=== PATIENT | female | born 2005 | race Caucasian/White ===

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

== ENCOUNTER 2024-12-05 13:26 | Emergency (ER) | payer BC, SELFPAY ==
[2024-12-05 13:30] VITALS: BP 126/89
[2024-12-05 14:00] LABS: Hematocrit 40.4 % (37.0-47.0); Hemoglobin 14.0 g/dL (12.0-16.0); Mean Corp Hgb Conc. 34.7 g/dL (33.0-37.0); Mean Corpuscular Volume 95.3 fL (81.0-99.0); Nucleated Red Blood Cells % 0 %; Platelet Count 237 10^3/uL (130-400); Red Cell Dist. Width 12.0 % (11.5-14.5)
[2024-12-05 14:06] LABS: Urine Character Clear (Clear)
[2024-12-05 14:14] LABS: Urine Red Blood Cell 0-2 /HPF (0-2); Urine Squamous Cell 26-30 /LPF (Few)
[2024-12-05 14:15] LABS: HCG, Serum Qualitative Screen Negative
[2024-12-05 14:22] LABS: ALT (SGPT) 21 U/L (0-35); AST (SGOT) 28 U/L (14-36); Albumin 5.3 g/dl (3.5-5.0); Alkaline Phosphatase 43 U/L (38-126); Blood Urea Nitrogen 16 mg/dl (7-17); Calcium 9.9 mg/dl (8.4-10.2); Carbon Dioxide 28 mmol/L (22-30); Chloride 104 mmol/L (98-107); Glucose 89 mg/dl (70-99); Lipase 105 U/L (23-300); Potassium 4.8 mmol/L (3.5-5.1); Sodium 138 mmol/L (135-145); Total Protein 8.2 g/dl (6.3-8.2); eGFR > 60.00
--- NOTE | 2024-12-05 16:32 | ED.GENMED ---
History of Present Illness
General
Chief Complaint: Abdominal Pain
Source: patient
Exam Limitations: none
Time Seen by Provider: 12/05/24 16:18
History of Present Illness
History of Present Illness:
19yoF with no significant past medical history presenting with her mother for evaluation of abdominal pain. Patient has been having left lower abdominal cramping for the past 2 weeks or so. She is also having some burning in her abdomen. Bowel
movements are alternating between diarrhea and constipation. She was seen by her PCP for her symptoms and was started on Pepcid without any relief. She had a urine test while at her PCP appt thinking she may have a UTI but was told her urinalysis
was normal. She denies any vomiting or fevers. She is about 5 days late for her menstrual period. No previous abdominal surgeries.
Phy Exam
General Physical Exam
General Presentation: well appearing and no apparent distress
General Skin: warm and dry
General Habitus: normal
General Mental: alert
ENT Exam
ENT Exam: normocephalic
Pulmonary Exam
Pulmonary Exam: no respiratory distress
Gastrointestinal Exam
Gastrointestinal Exam: soft, non distended and other (Mild tenderness in LLQ. Abdomen soft, non-distended. No rebound or guarding.)
Neurological Exam
Neurological Exam: alert
[place] Coma Scale
Eye Opening: Spontaneous
Verbal Response: Oriented
Motor Response: Obeys Commands
GCS Total Score: 15
Skin Exam
Skin Exam: normal color and warm/dry
Psychiatric Exam
Psychiatric Exam: normal mood/affect
Course
Orders/Labs/Results
Orders:
Orders
12/05/24 13:36
Test Result ONCE
12/05/24 13:52
Complete Blood Count/With Diff Urgent
Comprehensive Metabolic Panel Urgent
HCG, Serum Qualitative Screen Urgent
Comment: Notify provider if positive test present
Lipase Urgent
Urinalysis Reflex To Culture Urgent
Date Specimen was Collected: 12/05/24
Time Specimen was Collected: 13:35
Urine Microscopic Reflex Cult Urgent
Urine Culture Urgent
HAWA Source: U
Specimen Description:
Date Specimen was Collected: 12/05/24
Time Specimen was Collected: 13:35
12/05/24 16:31
Pelvis & Transvaginal US [US Pelvis W Transvag Combined] Urgent
Comment:
Reason For Exam: LLQ pain
12/05/24 19:25
CT Abd/pel W Iv And Oral Contr Urgent
Comment:
Reason For Exam: L sided abd pain
Iohexol [Omnipaque] See Protocol PO NOW STA
Abnormal Lab Results
12/05/24
13:52
MCH 33.0 H pg
(27.0-31.0)
Albumin 5.3 H g/dl
(3.5-5.0)
Leukocyte Esterase Rfl 1+ A
(Negative)
Urine Bacteria (Reflex) Moderate A
(Negative)
12/05/24 13:52
12/05/24 13:52
Vital Signs
Initial and Last Documented VS:
Initial Vital Signs
Temp Pulse Resp BP Pulse Ox
98.4 F 94 16 126/89 98
12/05/24 13:30 12/05/24 13:30 12/05/24 13:30 12/05/24 13:30 12/05/24 13:30
Last Documented Vital Signs
Temp Pulse Resp BP Pulse Ox
98.6 F 61 20 85/67 100
12/05/24 16:38 12/05/24 16:38 12/05/24 16:38 12/05/24 16:38 12/05/24 16:38
MDM/Problems Addressed
Differential Diagnosis Includes:
19yoF here with LLQ pain x 2 weeks. Alternating between constipation and diarrhea. VSS. She is well appearing in no distress. Mild LLQ tenderness on abdominal exam without signs of peritonitis. Differential diagnosis includes but is not limited to:
Ovarian cyst, constipation, colitis, IBS, less likely diverticulitis given age
Initial ED plan: Workup initiated in triage. Labs unremarkable including normal white count, renal function, LFTs. UA with moderate bacteria although 26-30/LPF squamous epithelial cells present suggesting contaminated sample. Will order pelvic
ultrasound.
Final assessment: Pelvic ultrasound negative for acute findings. Discussed risks vs benefits of CT scan and overall very low clinical suspicion for acute surgical process. Patient requesting CT which was ordered. Case signed out to Breana
RALPH Connell pending CT results. Will plan on outpatient GI f/u if this is negative.
*Pulse Oximetry
SaO2: 98
Oxygen Mode of Delivery: Room air
Patient hypoxic: no (98%)
*Critical Care Note
Total Time (30-74mins, 75-104mins- exclusive of procedures): Not Applicable
ED Attending Note
-
Portions of this chart may have been created with voice recognition software.� Occasional wrong word or��sound alike� substitutions may have occurred due to the inherent limitations of voice recognition software.
Discharge Plan
Departure
Patient Disposition: Home (Routine Discharge)
Date of Disposition: 12/05/24
Time of Disposition: 22:38
Patient with high blood pressure during this ER visit?: No
Condition: Good
Covid-19: Not Applicable
Discharge Problem:
Abdominal pain
Instructions: Abdominal Pain
Prescriptions:
No Action
No Current Medications
0
Referrals:
CARLOS VILLANUEVA DO [Family Provider, Pediatrics] - Follow up in 2-3 days
Activity Restrictions/Additional Instructions:
Return to the emergency department immediately for any changes in/worsening of your symptoms.
Interventions
Interventions:
*Risk Screen - Suicide Last Done: 12/05/24 13:30
*General Assessment Last Done: 12/05/24 16:38
*Neglect/Abuse Screening Last Done: 12/05/24 13:30
*ED- Fall Risk Assessment Last Done: 12/05/24 16:38
*ED COVID-19 Vaccine History Last Done: 12/05/24 16:38
[facility]-Vfucggve[facility] Assessment Last Done: 12/05/24 16:38
Discharge Date and Time
Print Language: NORWEGIAN
[2024-12-05 16:36] VITALS: BP 85/67
[2024-12-05 16:38] VITALS: BP 85/67; BMI 16.8
[2024-12-05] MEDS: OMNIPAQUE 50 ML PO (19:41)
[2024-12-05 21:30] VITALS: BP 91/57
== END 2024-12-05 22:55 | disposition home or self-care (01) ==
LOC: EMR 13:26
PROVIDERS: Emergency Medicine; EMERGENCY PHYSICIAN Emergency Medicine; FAMILY PHYSICIAN Student in an Organized Health Care Education/Training Program
DX: R10.32 Left lower quadrant pain (principal)
CPT/HCPCS: 99284; 74177; 76830; 76856; 80053; 81003; 81015; 83690; 84703; 85025; 87086; Q9967

== ENCOUNTER 2025-01-04 11:36 | Emergency (ER) | payer BC, SELFPAY ==
[2025-01-04 11:59] VITALS: BP 92/64
[2025-01-04 12:23] LABS: Hematocrit 41.1 % (37.0-47.0); Hemoglobin 14.3 g/dL (12.0-16.0); Mean Corp Hgb Conc. 34.8 g/dL (33.0-37.0); Mean Corpuscular Volume 93.6 fL (81.0-99.0); Nucleated Red Blood Cells % 0 %; Platelet Count 232 10^3/uL (130-400); Red Cell Dist. Width 12.0 % (11.5-14.5)
[2025-01-04 12:33] LABS: HCG, Serum Qualitative Screen Negative
[2025-01-04 12:43] LABS: ALT (SGPT) 29 U/L (0-35); AST (SGOT) 25 U/L (14-36); Albumin 4.8 g/dl (3.5-5.0); Alkaline Phosphatase 46 U/L (38-126); Blood Urea Nitrogen 8 mg/dl (7-17); Calcium 9.5 mg/dl (8.4-10.2); Carbon Dioxide 26 mmol/L (22-30); Chloride 107 mmol/L (98-107); Glucose 80 mg/dl (70-99); Lipase 116 U/L (23-300); Potassium 4.0 mmol/L (3.5-5.1); Sodium 141 mmol/L (135-145); Total Protein 7.2 g/dl (6.3-8.2); eGFR > 60.00
[2025-01-04 14:39] VITALS: BMI 16.7
--- NOTE | 2025-01-04 15:47 | ED.GENMED ---
History of Present Illness
General
Chief Complaint: Abdominal Pain
Source: patient and family
Exam Limitations: none
Time Seen by Provider: 01/04/25 15:00
Nursing documentation reviewed up to this point in time: agreed with
History of Present Illness
History of Present Illness:
Note:
CHIEF COMPLAINT(S)
Abdominal pain and constipation.
HISTORY OF PRESENT ILLNESS
The patient is a 19-year-old female presenting with abdominal pain described as a cramping and burning sensation that began approximately three weeks ago. The pain worsens when consuming certain foods, such as honeydew. It is severe enough to cause
significant discomfort, impacting her ability to perform daily activities, such as driving, and resulting in her doubling over in pain. Approximately three weeks ago, the patient visited the emergency department where a CT scan was performed,
revealing constipation.
The patient reports persistent constipation despite at-home management with Miralax, which she took as recommended, although it did not effectively relieve her symptoms. She has been consuming primarily rice due to her inability to eat a varied
diet. The patient underwent further lab evaluations for urinary frequency, which have returned normal results. Additionally, she has a lingering concern about an enlarged lymph node in her left leg, which was previously evaluated as benign.
The patient also experiences unexplained frequent urination but has tested negative for urinary infections multiple times. She describes a burning sensation originating in her abdominal region that extends upwards. She is scheduled to see a
gastrointestinal specialist but cannot obtain a colonoscopy for another 15 days. She has been instructed to avoid medications that may affect test results, such as antacids.
PAST MEDICAL AND SURGICAL HISTORY
Regular consultations with a hemmer automatic for non-fungal nail abnormalities since age 7.
EXTERNAL RECORDS REVIEWED
The previous CT scan and ultrasound confirmed benign lymphadenopathy in the left leg. Urgent care records show multiple negative results for urinary tract infections.
CHRONIC MEDICAL CONDITIONS SIGNIFICANTLY AFFECTING CARE
Candidate for gastrointestinal evaluation and potential colonoscopy due to ongoing abdominal symptoms.
MEDICATIONS
Current medications include Miralax as recommended for constipation management. Previously given a Medrol Dose Pack which improved symptoms but is contraindicated with upcoming tests.
REVIEW OF SYSTEMS
- Gastrointestinal: Abdominal pain, constipation, inability to eat certain foods without discomfort
- Genitourinary: Frequent urination, no dysuria
- Musculoskeletal: Mention of benign lymphadenopathy in leg and chronic non-fungal nail abnormalities.
PHYSICAL EXAM
General: Alert, no acute distress.
Skin: Warm, dry.
Head: Normocephalic, atraumatic.
Neck: Supple, trachea midline.
Eye Ears, nose, mouth and throat: Oral mucosa moist.
Cardiovascular: Normal peripheral perfusion, No edema.
Respiratory: Respirations are non-labored.
Gastrointestinal: Abdomen nondistended. soft, nontender, no rebound or guardin
Back: Normal range of motion, Normal alignment.
Musculoskeletal: Normal ROM, normal strength.
Neurological: Alert and oriented to person, place, time, and situation, No focal neurological deficit observed.
Psychiatric: Cooperative, appropriate mood & affect.
PROBLEM LIST
Acute problems: Abdominal pain, constipation, frequent urination.
Chronic problems: Enlarged benign lymph node, nail abnormalities.
PLAN
1. Prescribe Bentyl (dicyclomine) for abdominal spasms without affecting upcoming tests.
2. Diet Clerk patient to continue with the planned gastrointestinal evaluation and colonoscopy scheduled in 15 days.
3. Ensure accurate follow-up with a hemmer automatic for nail and lymph node concerns.
DIFFERENTIAL DIAGNOSIS
The Differential Diagnosis includes, in no particular order and is not limited to:
1. Irritable bowel syndrome
2. Functional constipation
3. Gastroesophageal reflux disease
4. Gastroenteritis
5. Urinary tract infection
6. Peptic ulcer disease
7. Cholecystitis
8. Inflammatory bowel disease
9. Gastrointestinal obstruction
10. Anxiety-related gastrointestinal symptoms
CARE-UPDATE
01/04/25 - 16:03
- Examination findings are benign; no suspicion of appendicitis or bowel obstruction.
- Etiology unclear, potentially related to constipation.
- Patient deemed stable for discharge.
- No need for repeat CT or ultrasound of the abdomen/pelvis.
- Gastroenterology follow-up is scheduled.
Disposition:
SUMMARY OF ENCOUNTER
The patient presented to the emergency department with abdominal pain, described as cramping and burning, alongside constipation. Previously, the patient had a CT scan indicative of constipation. The focus was to address abdominal pain potentially
related to constipation or reflux. Comfortable enough for outpatient management, no signs of appendicitis or bowel obstruction were observed, and an ectopic was ruled out (assumed based on the context of possible not as in
transcript).
DISPOSITION
Discharge
PLAN
The patient is prescribed dicyclomine for abdominal spasms and sucralfate to help manage potential gastroesophageal reflux or peptic symptoms. She will continue with the planned follow-up with a content strategy lead and ensure adherence to the
scheduled colonoscopy in 15 days.
INDEPENDENT REVIEW OF LABS AND INTERPRETATION OF TESTS
My independent interpretation of the previous abdominal CT scan indicates constipation without evidence of bowel obstruction.
PATIENT EDUCATION AND COUNSELING
The patient was instructed on the importance of adhering to the upcoming gastrointestinal evaluation and to monitor and manage diet to prevent symptom exacerbation. She was advised on symptoms that should prompt immediate return to the emergency
department.
FOLLOW-UP INSTRUCTIONS
Please follow up with the content strategy lead as scheduled in 15 days for further evaluation and management. Return precautions were provided should symptoms worsen or new symptoms arise.
MEDICATION RECONCILIATION
The patient is prescribed dicyclomine for abdominal spasms and sucralfate for suspected upper gastrointestinal issues.
MEDICAL DECISION MAKING
-Number and Complexity of Problems Addressed: Chronic conditions affecting care include prior episodes of constipation and symptoms consistent with gastrointestinal reflux. Differential Diagnosis includes:
1. Irritable bowel syndrome
2. Functional constipation
3. Gastroesophageal reflux disease
4. Gastroenteritis
5. Urinary tract infection
6. Peptic ulcer disease
7. Cholecystitis
8. Inflammatory bowel disease
9. Gastrointestinal obstruction
10. Anxiety-related gastrointestinal symptoms
-Data:
Category 1
External record reviewed: I reviewed previous abdominal imaging revealing constipation. There were no signs of appendicitis or obstruction.
Category 3
Discussion of management: Discussed treatment options with nurse and patient regarding outpatient management.
-Risk:
Prescription medication was prescribed (dicyclomine and sucralfate). Ample instruction for follow-up was included with assurance of a stable discharge.
DIAGNOSIS
-Abdominal pain (R10.9)
-Constipation (K59.00)
-Potential gastroesophageal reflux disease (K21.9)
Phy Exam
Physical Exam
Physical Exam:
.
Course
Orders/Labs/Results
Orders:
Orders
01/04/25 12:02
Test Result ONCE
01/04/25 12:08
Complete Blood Count/With Diff Urgent
Comprehensive Metabolic Panel Urgent
HCG, Serum Qualitative Screen Urgent
Comment: Notify provider if positive test present
Lipase Urgent
Abnormal Lab Results
01/04/25
12:08
WBC 4.5 L 10^3/uL
(4.8-10.8)
MCH 32.6 H pg
(27.0-31.0)
01/04/25 12:08
01/04/25 12:08
Vital Signs
Initial and Last Documented VS:
Initial Vital Signs
Temp Pulse Resp BP Pulse Ox
98.2 F 88 16 92/64 99
01/04/25 11:59 01/04/25 11:59 01/04/25 11:59 01/04/25 11:59 01/04/25 11:59
Last Documented Vital Signs
Temp Pulse Resp BP Pulse Ox
98.2 F 88 16 92/64 99
01/04/25 11:59 01/04/25 11:59 01/04/25 11:59 01/04/25 11:59 01/04/25 15:49
*Pulse Oximetry
SaO2: 99
Oxygen Mode of Delivery: Room air
Patient hypoxic: no
*Critical Care Note
Total Time (30-74mins, 75-104mins- exclusive of procedures): Not Applicable
ED Attending Note
-
Portions of this chart may have been created with voice recognition software.� Occasional wrong word or��sound alike� substitutions may have occurred due to the inherent limitations of voice recognition software.
Discharge Plan
Departure
Patient Disposition: Home (Routine Discharge)
Date of Disposition: 01/04/25
Time of Disposition: 15:50
Patient with high blood pressure during this ER visit?: No
Condition: Good
Discharge Problem:
Abdominal pain
Instructions: Abdominal Pain
Prescriptions:
New
sucralfate 1 gram tablet
1 g PO BID Qty: 14 0RF
dicyclomine 20 mg tablet
20 mg PO QID PRN (Reason: abdominal pain) Qty: 30 0RF
Referrals:
UNKNOWN - PT DOES,NOT KNOW [Family Provider]
Activity Restrictions/Additional Instructions:
Follow up with GI as scheduled. return for any concerns.
Interventions
Interventions:
*Risk Screen - Suicide Last Done: 01/04/25 14:43
*General Assessment Last Done: 01/04/25 14:40
*Neglect/Abuse Screening Last Done: 01/04/25 14:43
*ED- Fall Risk Assessment Last Done: 01/04/25 14:40
*ED COVID-19 Vaccine History Last Done: 01/04/25 14:40
*Nursing Disposition Last Done: 01/04/25 15:55
[facility] Assessment Last Done: 01/04/25 14:44
Discharge Date and Time
Discharge Date/Time: 01/04/25 15:55
Print Language: MALAY
== END 2025-01-04 15:55 | disposition home or self-care (01) ==
LOC: EMR 11:36
PROVIDERS: Emergency Medicine; EMERGENCY PHYSICIAN Emergency Medicine
DX: R10.9 Unspecified abdominal pain (principal); K59.00 Constipation, unspecified
CPT/HCPCS: 99283; 80053; 83690; 84703; 85025